=== PATIENT | female | born 1935 | race Caucasian/White ===

== ENCOUNTER 2019-08-08 03:23 | Inpatient (IN) | payer OTHER, MEDICAID, SELFPAY ==
[~2019-08-08] VITALS: Ht 160 cm; Wt 105.7 kg
[2019-08-08] VITALS (16 sets, daily range): BP systolic 67–135
[2019-08-08] MEDS ORDERED: NACL 0.9% 1,000 ML IV ONE (03:26)
[2019-08-08] MEDS ORDERED: KETOROLAC TROMETHAMINE 30 MG VIAL IVP ONE (03:30)
[2019-08-08] MEDS ORDERED: cefTRIAXone 1 GM IVPB PREMIX 50 ML IV ONE (03:30)
[2019-08-08] MEDS ORDERED: methylPREDNISolone SOD SUCC/PF 62.5 MG/ML VIAL IVP ONE (03:30)
[2019-08-08] MEDS ORDERED: ACETAMINOPHEN 500 MG TABLET PO ONE ×2 (03:30→04:00)
--- NOTE | 2019-08-08 03:30 | NUR ---
Placed in room 8 . Placed on compliance monitor, blood pressure machine and pulse oximeter. To gown for exam. Side rails up. Report given to Fuentes BARRERA/Radha BARRERA.
--- NOTE | 2019-08-08 03:31 | NUR ---
ER Dr. Ram at bedside examining patient.
--- NOTE | 2019-08-08 03:31 | NUR ---
Oxygen applied at 4 L per minute per min. O2 sats 97% by pulse oximetry.
--- NOTE | 2019-08-08 03:32 | NUR ---
Patient BIB EMS from [facility] ([facility]). C/O fall x today. Per EMS reported, patient fell and found in the restroom, lower back pain, Temp 102 at the scence. A/O,X4, lower back pain, pain rate 5/10, bilateral lower legs, swelling, redness, pitting edema right lower leg +1, Temp 103 (Oral).
--- NOTE | 2019-08-08 03:43 | NUR ---
RT drawn blood at bedside.
[2019-08-08] MEDS ORDERED: IBUPROFEN 800 MG TABLET PO ONE (04:00)
[2019-08-08] MEDS ORDERED: ALLO300T2 PO (04:08)
[2019-08-08] MEDS ORDERED: MULT-1159 PO (04:08)
[2019-08-08] MEDS ORDERED: [UNRECOGNIZED DRUG - CODE] TP (04:08)
[2019-08-08] MEDS ORDERED: POTA10TA15 PO (04:08)
[2019-08-08] MEDS ORDERED: HYDC.5% TP (04:08)
[2019-08-08] MEDS ORDERED: SILV50CR43 TP (04:08)
[2019-08-08] MEDS ORDERED: CHOL500037 PO (04:08)
[2019-08-08] MEDS ORDERED: ALBU2.5V7 INH (04:08)
[2019-08-08] MEDS ORDERED: RIVA10TA PO (04:08)
[2019-08-08] MEDS ORDERED: FENO160 PO (04:08)
[2019-08-08] MEDS ORDERED: POLY17PO4 PO (04:08)
[2019-08-08] MEDS ORDERED: HYDR-3607 PO (04:08)
[2019-08-08] MEDS ORDERED: ACET-73 PO (04:08)
[2019-08-08] MEDS ORDERED: GABA-529 PO (04:08)
[2019-08-08] MEDS ORDERED: KETO60CR2 TP (04:08)
[2019-08-08] MEDS ORDERED: NALO4SPR NS (04:08)
[2019-08-08] MEDS ORDERED: DOCU250C14 PO (04:08)
[2019-08-08] MEDS ORDERED: PROP15DR45 OP (04:08)
[2019-08-08] MEDS ORDERED: TRIA80OI TP (04:08)
[2019-08-08] MEDS ORDERED: NYST15PO2 TP (04:08)
[2019-08-08] MEDS ORDERED: FURO-149 PO (04:08)
[2019-08-08] MEDS ORDERED: NITSL SL (04:08)
[2019-08-08] MEDS ORDERED: ONDA4TAB5 PO (04:08)
[2019-08-08] MEDS ORDERED: ALEN10TA7 PO (04:08)
--- NOTE | 2019-08-08 04:08 | NUR ---
Medication reconciliation completed with information provided by KARELY BRYANT. Any prior medication reconciliation on file was reviewed and corrected.
[2019-08-08 04:30] LABS: BASOPHILS # (AUTO) 0.1 K/uL (0.0-0.2); BASOPHILS % (AUTO) 0.6 % (0.0-2.0); EOSINOPHILS # (AUTO) 0.1 K/uL (0.0-0.4); EOSINOPHILS % (AUTO) 0.9 % (0.0-4.0); HEMATOCRIT 40.4 % (36-48); HEMOGLOBIN 13.5 g/dL (12.0-16.0); LYMPHOCYTES # (AUTO) 1.1 K/uL (1.0-5.5); LYMPHOCYTES % (AUTO) 12.6 % (20.5-51.5); MEAN CORPUSCULAR HEMOGLOBIN 34 pg (27-31); MEAN CORPUSCULAR HGB CONC 34 % (32-36); MEAN CORPUSCULAR VOLUME 102 fL (79.0-98.0); MONOCYTES # (AUTO) 0.8 K/uL (0.0-1.0); MONOCYTES % (AUTO) 8.5 % (1.7-9.3); NEUTROPHILS % (AUTO) 77.4 % (40.0-70.0); PLATELET COUNT (AUTO) 330 K/uL (130-430); RED BLOOD CELL COUNT(AUTO) 3.96 MIL/uL (4.2-6.2); RED CELL DISTRIBUTION WIDTH 14.1 % (9.0-15.0); WHITE BLOOD COUNT (AUTO) 9.1 K/uL (4.8-10.8)
--- NOTE | 2019-08-08 04:32 | NUR ---
X- ray at bedside.
--- NOTE | 2019-08-08 04:34 | NUR ---
BP 82/42, Dr. Ram notified.
[2019-08-08 04:43] LABS: ANION GAP 7 (5-15); CALCIUM 8.9 mg/dL (8.4-11.0); CHLORIDE 100 mmol/L (98-107); CREATININE 1.19 mg/dL (0.55-1.30); GLUCOSE 113 mg/dL (70-99); POTASSIUM 3.9 mmol/L (3.5-5.1); SODIUM SERUM 137 mmol/L (136-145); UREA NITROGEN, BLOOD 30 mg/dL (8-21)
[2019-08-08 04:45] LABS: INR 1.2 (0.8-1.2)
[2019-08-08 04:48] LABS: ALANINE AMINOTRANSFERASE 26 U/L (12-78); ALBUMIN 2.6 g/dL (3.4-4.8); AMYLASE 45 U/L (0-100); ASPARTATE AMINOTRANSFERASE 23 U/L (10-37); LIPASE 134 U/L (73-393); TOTAL BILIRUBIN 0.4 mg/dL (0.0-1.0)
--- NOTE | 2019-08-08 05:01 | NUR ---
In and out cath, collected urine and sent to lab.
[2019-08-08 05:14] LABS: BILIRUBIN,URINE NEGATIVE (NEGATIVE); CLARITY/URINE CLEAR (CLEAR); COLOR,URINE YELLOW (YELLOW); GLUCOSE,URINE NEGATIVE (NEGATIVE); KETONES,URINE NEGATIVE (NEGATIVE); LEUKOCYTE ESTERASE ,URINE 3+ (NEGATIVE); NITRITE, URINE POSITIVE (NEGATIVE); PROTEIN URINE 1+ (NEGATIVE); UROBILINOGEN,URINE 0.2 (0.2-1.0)
[2019-08-08 05:20] LABS: BLOOD, URINE TRACE (NEGATIVE)
[2019-08-08 05:22] LABS: BACTERIA,URINE MANY /HPF (None Seen); WBC,URINE >100 /HPF (0-3)
--- NOTE | 2019-08-08 05:42 | NUR ---
Patient resting quietly. No acute distress noted. Vital signs within normal range.
--- NOTE | 2019-08-08 06:33 | NUR ---
Called for bed, waiting to call back.
--- NOTE | 2019-08-08 07:04 | NUR ---
Endorsed care to HOLLY Phelps.
--- NOTE | 2019-08-08 08:13 | NUR ---
Patient is resting comfortably in bed, alert and oriented, speaking in full sentences, VSS.
[2019-08-08] MEDS ORDERED: NITROGLYCERIN 0.4 MG TAB.SUBL SL PRN (09:30)
[2019-08-08] MEDS ORDERED: FAMOTIDINE 20 MG TABLET PO ONE (09:30)
[2019-08-08] MEDS ORDERED: POLYETHYLENE GLYCOL 3350, 17 GM/ POWD.PACK PO SCH (09:30)
[2019-08-08] MEDS ORDERED: GABAPENTIN 100 MG CAPSULE PO ONE (09:30)
[2019-08-08] MEDS ORDERED: NS 250 ML IV ONE ×2 (10:15→12:00)
--- NOTE | 2019-08-08 10:17 | NUR ---
Spoke with Dr. Shafer, patient upgraded to ICU for hypotension. Additional orders received.
--- NOTE | 2019-08-08 10:44 | NUR ---
Patient is resting comfortably in bed, denied any respiratory distress.
--- NOTE | 2019-08-08 10:52 | NUR ---
Patient will be admitted to care of Dr. Shafer. Admitted to ICU unit. Will go to room 5. Belongings list completed. Complete and up to date summary report printed. SBAR report to be given at bedside with opportunity for questions.
--- NOTE | 2019-08-08 11:05 | NUR ---
ADMISSION NOTE Received patient from ER via gurney. Patient admitted with diagnosis of . Patient is awake, alert, oriented X 3. Patient oriented to hospital room, call light, toileting, pain management and safety-teach back done. Patient informed that i will be her nurse and that their room number is 5. Personal belongings checked and Belongings List documented. Call light within reach. contact/droplet precaution placed.
--- NOTE | 2019-08-08 11:55 | NUR ---
New consult paged to Dr. Marks. Spoke with exchange.
[2019-08-08] MEDS: NOREPINEPHRINE BITARTRATE 4 MG in D5W 246 ML IV PRN ×2 (12:35→23:47)
--- NOTE | 2019-08-08 12:55 | NUR ---
New consult paged to Dr. Kiser, spoke with exchange Elsy.
[2019-08-08] MEDS ORDERED: ALBUTEROL MDI INHALATION 8 GM INH INH SCH (13:00)
[2019-08-08] MEDS ORDERED: PIPERACILLIN/TAZO 3.375/DEX-IS 50 ML IV ONE (13:00)
--- NOTE | 2019-08-08 13:05 | NUR ---
MD ROUNDS: SEEN BY DR. WILSON EXAMINED AND DISCUSS ABOUT THE POC. INFORMED ALSO PATIENT REFUSED PICC LINE PLACEMENT.
--- NOTE | 2019-08-08 13:15 | NUR ---
FELIPE CATH: # 16 FR Felipe catheter with 10 cc bulb inserted with use of sterile technique. Bulb inflated with 10 cc sterile water. Immediate return of 200 cc urine noted. Bedside drainage bag placed below level of bladder. Urine sample collected and sent to lab . Pt tolerated procedure well.
[2019-08-08] MEDS ORDERED: IVERMECTIN 3 MG TABLET PO ONE (13:30)
--- NOTE | 2019-08-08 13:32 | NUR ---
DR. HUNTER, INFORMED ABOUT THE CONSULT AND UPDATED PATIENT CURRENT CONDITION.TELEPHONE ORDER RECEIVED. ZITHROMAX 500MG IVPB DAILY, ZOSYN 3/375GM IVPB q 8 HRS. IVERMICTIN 12 MG PO X1. NOTED AND CARRIED OUT.
[2019-08-08] MEDS: AZITHROMYCIN 500 MG in NS 250 ML IV SCH (14:53)
--- NOTE | 2019-08-08 15:50 | NUR ---
ECHOCARDIOGRAM DONE AT BEDSIDE.
[2019-08-08] MEDS: NACL 0.9% 1,000 ML IV SCH ×2 (16:51→22:25)
[2019-08-08] MEDS: RIVAROXABAN 10 MG TABLET PO SCH (17:45)
--- NOTE | 2019-08-08 18:10 | NUR ---
PATIENT REFUSED TO EAT DINNER. STATED NOT HUNGRY AT THIS TIME. WILL OFFER AGAIN LATER.
--- NOTE | 2019-08-08 19:15 | NUR ---
change of shift.pt.presents isolation status;droplet;covid 19 pui.pt.presents iv access;levophed drip infusing:rate;6mcq/min; 18ml/hr. via peripheraline;location;lt.hand.pt.presents moreno cath.urine content present.pt.presents the administration o2 therapy via nasal cannulae;@the rate;4l/m,in.02-sat%=98%.call light w/in reach of the pt.
--- NOTE | 2019-08-08 19:23 | NUR ---
ENDORSED CARE TO VASILIY BARRERA. PT AWAKE,STABLE CONDITION. NO S/S OF DISTRESS.
--- NOTE | 2019-08-08 19:30 | NUR ---
b/p assessed presents elevated values.131/54.i have decreased the levophed drip:4mcq/min.to monitor the b/p values.
--- NOTE | 2019-08-08 20:00 | NUR ---
pt.assessed.v/s assessed;b/p values noted.o2-sat%=98%.moreno cath intact;patent urine content present:noted sediments. iv access intact;patent iv fluids/levophed drip infusing.no c/o pain,nausea.general status stable.respiratory status stable.call light placed w/in reach of the pt.
[2019-08-08] MEDS: DOCUSATE SODIUM 250 MG CAPSULE PO SCH (20:45)
[2019-08-08] MEDS: GABAPENTIN 100 MG CAPSULE PO SCH (20:45)
[2019-08-08] MEDS: HYDROcodone/ACETAMIN 5-325 MG TAB (NORCO/ VICODIN) PO SCH (20:46)
--- NOTE | 2019-08-08 21:00 | NUR ---
2100p medications administered.i have feed the pt.the dinner tray.pt.capable t ingest the medications w/out difficulty.
[2019-08-08] MEDS: PIPERACILLIN/TAZO 3.375/DEX-IS 50 ML IV SCH (21:38)
--- NOTE | 2019-08-08 22:00 | NUR ---
pt.assessed.v/s assessed:b/p values present low values;i have increased the levophed drip rate:5mcq/min.no c/o pain,nausea. pt.assessed for cleanliness.pt.repositioned.iv access intact;patent iv fluids infusing.moreno cath intact;patent urine content present. sediments noted. general status stable.respiratory status stable;o2-sat%=98%.call light placed w/in reach of the pt.
[2019-08-09] VITALS (23 sets, daily range): BP systolic 53–133
--- NOTE | 2019-08-09 | NUR ---
pt.assessed.v/s assessed;note b/p presents low values;i have increased the levo phed drip rate;6mcq/min.no c/o pain, nausea. pt.assessed for cleanliness.pt.repositioned.noted:s.bradycardia rhythm.moreno cath intact;patent urine content present. general status stable. respiratory status stable;02-sat%=98%.call light placed w/in reach of the pt.
--- NOTE | 2019-08-09 01:00 | NUR ---
pt.requested assistance w the bedpan.i have assisted the pt.w the bedpan.pt.requested additional blanket,i have provided the blanket and water.
--- NOTE | 2019-08-09 02:00 | NUR ---
pt.assessed.v/s assessed values w/in normal limits:b/p values noted 2/t levophed drip administration.no c/o pain,nausea. no requests posited@this hour.respiratory status noted;o2-sat%=96%.general status stable.pt.assessed for cleanliness. pt.repositioned. call light placed w/in reach of the pt.
--- NOTE | 2019-08-09 04:00 | NUR ---
pt.assessed.v/s assessed;values:b/p noted 2/t levophed drip.w/in normal limits.rate:6mcq/min.respiratory status sat;02-sat% =96%. iv access intact;patent iv fluids;levophed drip infusing.no c/o pain,nausea.general status stable.pt.assessed for cleanliness.pt.repositioned. call light w/in reach of the pt.
[2019-08-09] MEDS: NACL 0.9% 1,000 ML IV SCH ×2 (05:54→09:53)
[2019-08-09] MEDS: PIPERACILLIN/TAZO 3.375/DEX-IS 50 ML IV SCH ×3 (05:54→23:09)
[2019-08-09 05:55] LABS: BASOPHILS # (AUTO) 0.1 K/uL (0.0-0.2); BASOPHILS % (AUTO) 0.5 % (0.0-2.0); EOSINOPHILS # (AUTO) 0.1 K/uL (0.0-0.4); HEMATOCRIT 40.1 % (36-48); HEMOGLOBIN 13.5 g/dL (12.0-16.0); LYMPHOCYTES # (AUTO) 0.2 K/uL (1.0-5.5); LYMPHOCYTES % (AUTO) 1.4 % (20.5-51.5); MEAN CORPUSCULAR HEMOGLOBIN 35 pg (27-31); MEAN CORPUSCULAR HGB CONC 34 % (32-36); MEAN CORPUSCULAR VOLUME 103 fL (79.0-98.0); MONOCYTES # (AUTO) 0.1 K/uL (0.0-1.0); MONOCYTES % (AUTO) 0.8 % (1.7-9.3); NEUTROPHILS # (AUTO) 11.5 K/uL (1.8-7.7); NEUTROPHILS % (AUTO) 96.3 % (40.0-70.0); PLATELET COUNT (AUTO) 384 K/uL (130-430); RED BLOOD CELL COUNT(AUTO) 3.91 MIL/uL (4.2-6.2); RED CELL DISTRIBUTION WIDTH 14.1 % (9.0-15.0); WHITE BLOOD COUNT (AUTO) 11.9 K/uL (4.8-10.8)
[2019-08-09] MEDS: ACETAMINOPHEN 500 MG TABLET PO PRN ×2 (06:05→23:10)
--- NOTE | 2019-08-09 06:30 | NUR ---
pt.assessed.pt.presents temp;elevated.cooling measures initiated.i have administered tylenol;500mg po 1 tab;extra-strength.i have photoed the wounds;lower extremities,rt.buttocks/sacrum.b/p values noted.iv access intact;patent levophed drip/iv fluids infusing. 6mcq/min.i have administered zosyn;abx;ivpb.0600a.dose.to monitor the b/p,temp values.i
[2019-08-09 07:11] LABS: ALBUMIN 2.1 g/dL (3.4-4.8); ANION GAP 3 (5-15); CALCIUM 8.2 mg/dL (8.4-11.0); CHLORIDE 105 mmol/L (98-107); CREATININE 1.17 mg/dL (0.55-1.30); GLUCOSE 73 mg/dL (70-99); POTASSIUM 3.8 mmol/L (3.5-5.1); SODIUM SERUM 137 mmol/L (136-145); UREA NITROGEN, BLOOD 33 mg/dL (8-21)
--- NOTE | 2019-08-09 07:30 | NUR ---
Opening Notes Patient sleeping in bed at this time but is arousable, able to communicate and answer questions. Patient on desk monitor with 4L oxygen via nasal cannula with no signs of distress noted. Patent with a peripheral IV infusing levophed at 8 mcg/min. Patient also receiving NS @ 125 ml/hr at this time. Patient with moreno catheter draining yellow urine. Safety and isolation precautions enforced.
[2019-08-09 08:28] LABS: ALANINE AMINOTRANSFERASE 26 U/L (12-78); ASPARTATE AMINOTRANSFERASE 28 U/L (10-37); THYROID STIMULATING HORMONE 1.58 uIu/mL (0.34-4.82); TOTAL BILIRUBIN 0.3 mg/dL (0.0-1.0)
--- NOTE | 2019-08-09 08:57 | NUR ---
Nutrition Update Devendra Scale 13 noted. Pt admitted for PNA, CHF, PUI for COVID-19 Diet: 2gmNa BMI: 38.8 kg/m2 RD to follow per nutrition care standards.
[2019-08-09] MEDS: GABAPENTIN 100 MG CAPSULE PO SCH ×2 (09:51→23:10)
[2019-08-09] MEDS: HYDROcodone/ACETAMIN 5-325 MG TAB (NORCO/ VICODIN) PO SCH ×2 (09:51→23:10)
[2019-08-09] MEDS: DOCUSATE SODIUM 250 MG CAPSULE PO SCH ×2 (09:52→21:00)
[2019-08-09] MEDS: AZITHROMYCIN 500 MG in NS 250 ML IV SCH (09:52)
[2019-08-09] MEDS: FAMOTIDINE 20 MG TABLET PO SCH (09:52)
--- NOTE | 2019-08-09 10:00 | NUR ---
PICC line refusal Reinforced teaching regarding PICC line placement. Patient verbalized understanding and stated, "I had two PICC lines before and did not like the experience."
--- NOTE | 2019-08-09 10:10 | NUR ---
IV Insertion refusal Educated patient regarding a second peripheral IV insertion which patient refused. Patient verbalized teaching.
[2019-08-09] MEDS: NOREPINEPHRINE BITARTRATE 4 MG in D5W 246 ML IV PRN (10:50)
--- NOTE | 2019-08-09 12:00 | NUR ---
RN Rounds Patient resting at this time, no signs of distress noted. Safety precautions enforced.
--- NOTE | 2019-08-09 12:05 | NUR ---
Discharge Planning Conducted Discharge Plan Assessment Patient is in ICU and PUI Covid. Could not meet patient at bedside. Phoned [facility] [phone], where patient resides, and spoke with patient's nurse there. She had incorrect information on patient's recent discharge from SNF, but did say that patient was supposed to get wound care and PT from [facility] (she thinks). They plan for patient to return to [facility] upon discharge if she is strong enough. Phoned patient's sister, Nicole Fuller cell [phone]. She stated that patient was recently at [facility] until June 21, when she returned to her home at [facility]. Patient worked hard to get back to [facility] and sister knows patient would prefer to return there. Nicole would like patient to have PT services upon discharge. If patient requires SNF, Nicole would prefer patient go to a SNF closer to [place], but hopes patient will be able to assist in that decision. Will notify CM and DC Coordinator of above. Will remain available. Addendum: 08/09/19 at 1210 by Leah Patel [facility] Patient's baseline is wheelchair with self transfer to [facility] for toileting and other short trips.
--- NOTE | 2019-08-09 15:35 | NUR ---
Dietitian Recommendations *Continue 2gm Na diet as tolerated *Ensure Clear BID. Each serving provides 240kcal and 8gPro. *Encourage PO intake Please see Nutrition Assessment for further details. LT, RD
--- NOTE | 2019-08-09 16:00 | NUR ---
RN Rounds Irrigated moreno catheter using sterile water. Patient tolerated well. No signs of distress noted. Patient resting at this time with eyes closed.
--- NOTE | 2019-08-09 16:00 | NUR ---
WOUND EVALUATION: Wound Consult received from Dr. Shafer. Thank you Dr. Shafer for the consult. Patient received in a [facility] Bed with an IsoFlex HARRY low air-loss mattress, awake, sleepy, oriented. Patient is unable to turn in bed independently. Devendra Score is a 13. Past Medical History: Atrial Fibrillation, Hypertension, Congestive Heart Failure, COPD. Recent Labs: WBC 11.9, RBC 3.91, hemoglobin 13.5, hematocrit 40.1, BUN 33, creatinine 1.17, glucose 73, calcium 8.2, alkaline phosphatase 44, BNP 660, serum total protein 5.8, albumin 2.1, PTT 42.9, d-dimer 517. Microbiology: MRSA screen results negative. Blood culture results x2 in progress. Urine culture results in progress. Intrinsic factors that delay wound healing: Congestive Heart Failure, COPD, Hypoalbuminemia. Extrinsic factors that delay wound healing: Decreased mobility. Generalized body erythema noted. Wound Assessment: 1. Right Buttock: Stage II pressure ulcer, present on admission. Wound bed has 90% pink tissue, 10% red tissue. No odor, no drainage. Periwound intact. Wound measures 1.5 cm x 1.1 cm. Recommend: Cleanse wound with normal saline. Apply moisture barrier cream to periwound. Apply Venelex ointment to the wound bed. Cover with foam dressing. Perform wound care daily, and as needed for dressing soiling or dislodgment. 2. Left lower extremity: Possible cellulitis, with erythema, calor, and nonpitting edema. No odor, no drainage, no weeping, no wounds. 3. Right lower extremity: Possible cellulitis, with erythema, calor, and nonpitting edema. No odor, no drainage, no weeping, no wounds. Recommend: No dressings needed. Continue to monitor extremities every shift. Also recommend: Reposition patient side to side only every 2 hours with one pillow deep under buttock and one pillow deep under trunk (you should be able to slide hand freely underneath buttock area with wound), and off-load pressure areas with pillows for pressure re-distribution. Offload, elevate and float bilateral heels with pillows. Perform skin care and monitor skin integrity Q shift. Use moisture barrier cream on buttocks and other moisture susceptible areas QID and as needed for soiling. Initiate low air-loss therapy.
[2019-08-09] MEDS: RIVAROXABAN 10 MG TABLET PO SCH (18:15)
--- NOTE | 2019-08-09 19:40 | NUR ---
Closing Notes Patient endorsed to third shift lieutenant RN using SBAR format. No signs of distress noted.
--- NOTE | 2019-08-09 20:00 | NUR ---
ASSESSMENT Pt resting quietly. Fever present 102.3 temporal. IVF infusing well. Cooling measures started. Mcfarland cath in use.
[2019-08-10] VITALS (23 sets, daily range): BP systolic 61–128
[2019-08-10] MEDS: NACL 0.9% 1,000 ML IV SCH ×3 (05:15→15:30)
--- NOTE | 2019-08-10 05:15 | NUR ---
FEVER Dr Cuevas informed regarding Pt having a fever of 102.3 temporal during the night. No orders received.
[2019-08-10 05:49] LABS: BASOPHILS # (AUTO) 0.1 K/uL (0.0-0.2); BASOPHILS % (AUTO) 0.5 % (0.0-2.0); EOSINOPHILS # (AUTO) 0.4 K/uL (0.0-0.4); EOSINOPHILS % (AUTO) 1.9 % (0.0-4.0); HEMATOCRIT 38.7 % (36-48); HEMOGLOBIN 12.8 g/dL (12.0-16.0); LYMPHOCYTES # (AUTO) 0.3 K/uL (1.0-5.5); LYMPHOCYTES % (AUTO) 1.5 % (20.5-51.5); MEAN CORPUSCULAR HEMOGLOBIN 34 pg (27-31); MEAN CORPUSCULAR HGB CONC 33 % (32-36); MEAN CORPUSCULAR VOLUME 103 fL (79.0-98.0); MONOCYTES # (AUTO) 0.3 K/uL (0.0-1.0); MONOCYTES % (AUTO) 1.4 % (1.7-9.3); NEUTROPHILS # (AUTO) 19.7 K/uL (1.8-7.7); NEUTROPHILS % (AUTO) 94.7 % (40.0-70.0); PLATELET COUNT (AUTO) 377 K/uL (130-430); RED BLOOD CELL COUNT(AUTO) 3.76 MIL/uL (4.2-6.2); RED CELL DISTRIBUTION WIDTH 14.4 % (9.0-15.0); WHITE BLOOD COUNT (AUTO) 20.7 K/uL (4.8-10.8)
[2019-08-10] MEDS: PIPERACILLIN/TAZO 3.375/DEX-IS 50 ML IV SCH ×3 (05:57→22:06)
[2019-08-10] MEDS: NOREPINEPHRINE BITARTRATE 4 MG in D5W 246 ML IV PRN ×2 (06:08→20:31)
[2019-08-10 06:20] LABS: ALANINE AMINOTRANSFERASE 26 U/L (12-78); ALBUMIN 1.5 g/dL (3.4-4.8); ANION GAP 7 (5-15); ASPARTATE AMINOTRANSFERASE 25 U/L (10-37); CALCIUM 7.3 mg/dL (8.4-11.0); CHLORIDE 104 mmol/L (98-107); CREATININE 1.84 mg/dL (0.55-1.30); GLUCOSE 117 mg/dL (70-99); POTASSIUM 3.8 mmol/L (3.5-5.1); SODIUM SERUM 137 mmol/L (136-145); THYROID STIMULATING HORMONE 1.79 uIu/mL (0.36-3.74); TOTAL BILIRUBIN 0.3 mg/dL (0.0-1.0); UREA NITROGEN, BLOOD 39 mg/dL (8-21)
[2019-08-10] MEDS: GABAPENTIN 100 MG CAPSULE PO SCH ×2 (09:00→22:06)
[2019-08-10] MEDS: DOCUSATE SODIUM 250 MG CAPSULE PO SCH ×2 (09:00→22:06)
[2019-08-10] MEDS: FAMOTIDINE 20 MG TABLET PO SCH (09:00)
[2019-08-10] MEDS ORDERED: NACL 0.9% 1,000 ML IV ONE (09:00)
[2019-08-10] MEDS: HYDROcodone/ACETAMIN 5-325 MG TAB (NORCO/ VICODIN) PO SCH ×2 (09:00→22:08)
--- NOTE | 2019-08-10 09:40 | NUR ---
CONSULT NEPHRO. CONSULTING MD: DR. MATHIS SPOKE TO: SHABNAM DIALED: [phone] ORDERED BY: DR. WILSON
--- NOTE | 2019-08-10 10:00 | NUR ---
Pt refused breakfast, medications and PICC line.
--- NOTE | 2019-08-10 11:00 | NUR ---
COVID TEST Pt refused repeat covid test. States leave me alone. Dont touch me.
[2019-08-10] MEDS: AZITHROMYCIN 500 MG in NS 250 ML IV SCH (11:55)
--- NOTE | 2019-08-10 13:30 | NUR ---
PICC Held the phone up for pts sister Moses to talk to the pt about a PICC line. The pt declines at this time and I explained to both the patient and moses the necessity due to the levophed and abx. I explained the patient that she could without the levophed if her IV infiltrates. She did not say anything but continues to refuse the PICC. She would allow a physician to insert the PICC but not a nurse. I informed both that the doctors do central lines not PICC lines and that a PICC is more versatile upon discharge for for custodial abx. Pt refuses the PICC.
--- NOTE | 2019-08-10 16:07 | NUR ---
Social Service Note: CEMENT MASON APPRENTICE received order to determine if pt can make her own decisions. CEMENT MASON APPRENTICE reviewed pt's chart; pt has a DNR. CEMENT MASON APPRENTICE spoke with pt's nurse regarding order. Pt's nurse states that pt has only one IV site and need a PICC; pt is stating that she does not want a PICC. CEMENT MASON APPRENTICE spoke with pt's nurse that if pt cannot make decisions her sister should be contacted. Pt's nurse states that she has spoken to pt's sister who wants to honor pt's wishes. If physician feels pt should be evaluated to determine her competency a psychiatric consultation should be ordered. CEMENT MASON APPRENTICE will remain available for support and will follow up as needed.
--- NOTE | 2019-08-10 16:17 | NUR ---
Social Service Consult/Estela Palmer rounded regarding the social service consult ordered. She indicated as long as there are advanced directives that is what we should follow. She is unable to speak to the patient at this time.
--- NOTE | 2019-08-10 16:38 | NUR ---
Cell Phone brought to hospital Someone brought the pts cell phone to the hospital. I told them to leave it at home, but they insisted. I put the cell phone in the room in the pts belongings bag. I dod not log it on the belongings list. I did not have time.
[2019-08-10] MEDS: BALSAM PERU/CASTOR OIL 60 GM OINT...G. TP SCH (17:31)
[2019-08-10] MEDS: RIVAROXABAN 10 MG TABLET PO SCH (18:00)
--- NOTE | 2019-08-10 19:15 | NUR ---
OPENING NOTE SBAR RECEIVED FROM TAMAR BARRERA. CARE ASSUMED. PT LAYING IN BED. ANO X 3. PT ON 4L NASAL CANULA. O2 SATURATION 99%. PT SINUS RHYTHM ON MONITOR RATE 88. PT HAS 22G IV TO LEFT HAND RUNNING LEVOPHED @ 6MCG/MIN AND NORMAL SALINE @ 100ML/HR. RADIAL AND PEDAL PULSES NORMAL. 2+ PITTING EDEMA TO UPPER AND LOWER EXTREMITIES. ABDOMEN SOFT NON DISTENDED. FELIPE CATHETER IN PLACE FLOWING TO GRAVITY. URINE YELLOW AND CLEAR. BILATERAL UPPER AND LOWER EXTREMITIES ERYTHEMATOUS AND SWOLLEN. SACRAL WOUND PRESENT. DRESSING CLEAN DRY AND INTACT. BED LOCKED IN LOWEST POSITION. SAFETY PRECAUTIONS IN PLACE. CALL LIGHT WITHIN REACH. WILL CONTINUE TO MONITOR.
--- NOTE | 2019-08-10 19:30 | NUR ---
Report given to oncoming shift to assume care.
[2019-08-10] MEDS ORDERED: NOREPINEPHRINE 4 MG/4 ML VIAL IV ONE (20:29)
[2019-08-11] VITALS (25 sets, daily range): BP systolic 78–137
[2019-08-11] MEDS: NACL 0.9% 1,000 ML IV SCH ×3 (01:00→22:45)
[2019-08-11] MEDS: PIPERACILLIN/TAZO 3.375/DEX-IS 50 ML IV SCH ×3 (06:48→21:00)
--- NOTE | 2019-08-11 07:30 | NUR ---
Opening Notes Pt received from night RN using SBAR. Pt resting in bed with eyes closed. No complaints of pain or distress at this time.
--- NOTE | 2019-08-11 07:30 | NUR ---
Opening Note Pt resting in bed with eyes closed. Pt is easily awaken to verbal stimuli.
--- NOTE | 2019-08-11 07:54 | NUR ---
CLOSING NOTE PT LAYING IN BED. NO SIGNS AND SYMPTOMS OF DISTRESS NOTED. SBAR REPORT GIVEN TO RODERICK BARRERA. CARE ENDORSED.
[2019-08-11] MEDS: GABAPENTIN 100 MG CAPSULE PO SCH ×3 (07:57→20:59)
[2019-08-11] MEDS: DOCUSATE SODIUM 250 MG CAPSULE PO SCH ×3 (07:57→20:59)
[2019-08-11] MEDS: AZITHROMYCIN 500 MG in NS 250 ML IV SCH (07:57)
[2019-08-11] MEDS: FAMOTIDINE 20 MG TABLET PO SCH ×2 (07:58→09:00)
[2019-08-11] MEDS: HYDROcodone/ACETAMIN 5-325 MG TAB (NORCO/ VICODIN) PO SCH ×3 (07:58→21:00)
[2019-08-11] MEDS ORDERED: NACL 0.9% 1,000 ML IV ONE (08:30)
[2019-08-11] MEDS: BALSAM PERU/CASTOR OIL 60 GM OINT...G. TP SCH (09:00)
--- NOTE | 2019-08-11 09:00 | NUR ---
Refusing Pt refusing morning breakfast and morning medication. Will continue to offer food and medication
[2019-08-11] MEDS: NOREPINEPHRINE BITARTRATE 4 MG in D5W 246 ML IV PRN ×2 (09:03→19:17)
[2019-08-11 11:10] LABS: HEMATOCRIT 37.7 % (36-48); HEMOGLOBIN 12.4 g/dL (12.0-16.0); MEAN CORPUSCULAR HEMOGLOBIN 34 pg (27-31); MEAN CORPUSCULAR HGB CONC 33 % (32-36); MEAN CORPUSCULAR VOLUME 104 fL (79.0-98.0); PLATELET COUNT (AUTO) 341 K/uL (130-430); RED BLOOD CELL COUNT(AUTO) 3.62 MIL/uL (4.2-6.2); RED CELL DISTRIBUTION WIDTH 14.8 % (9.0-15.0); WHITE BLOOD COUNT (AUTO) 21.8 K/uL (4.8-10.8)
[2019-08-11] MEDS: ALBUMIN HUMAN 25% 50 ML IV SCH ×3 (11:22→19:10)
[2019-08-11 11:32] LABS: ANION GAP 12 (5-15); CHLORIDE 107 mmol/L (98-107); CREATININE 1.59 mg/dL (0.55-1.30); GLUCOSE 116 mg/dL (70-99); POTASSIUM 3.5 mmol/L (3.5-5.1); SODIUM SERUM 138 mmol/L (136-145); UREA NITROGEN, BLOOD 45 mg/dL (8-21)
[2019-08-11 11:47] LABS: ALANINE AMINOTRANSFERASE 22 U/L (12-78); ALBUMIN 1.3 g/dL (3.4-4.8); ASPARTATE AMINOTRANSFERASE 5 U/L (10-37); TOTAL BILIRUBIN 0.3 mg/dL (0.0-1.0)
[2019-08-11 11:50] LABS: CALCIUM 6.8 mg/dL (8.4-11.0)
--- NOTE | 2019-08-11 13:15 | NUR ---
Bowel Movement Pt informed that she had bowel movement and must be cleaned, pt stated "leave me alone i dont want to be cleaned". Will continue to offer to clean pt
[2019-08-11 13:50] LABS: BAND % (MANUAL) 32 % (0-6); BASOPHILS % (MANUAL) 0 % (0-2); EOSINOPHILS % (MANUAL) 3 % (0-7); LYMPHOCYTES % (MANUAL) 2 % (20-46); METAMYELOCYTES % 2 % (0-0); MONOCYTES % (MANUAL) 1 % (0-11)
--- NOTE | 2019-08-11 14:07 | NUR ---
Nutrition F/U Admitting Diagnosis PNA, CHF, PUI for COVID-19 Reviewed Pertinent Medical/Surgical Hx Medical Record Medical History Comment: PMHx includes A-fib, HTN, CHF, COPD per physician notes. Pt was found with septic shock, aspiration PNA, complicated UTI, metabolic encephalopathy, protein malnutrition per physician notes. COVID-19 PCR 08/08 negative. Per MD note, pt is DNR status. Subjective Information Pt remains as high risk d/t protein malnutrition and sepsis. RD reviewed nursing notes, no pressure injuries reported. Nutrition education not appropriate. EMR indicates that pt eating remains poor. Alternate route of nutrition may be indicated. Current Diet Order/Nutrition Support 2gm Na x 3 day Pertinent Medications Pepcid, Neurontin, Colace, Norepinephrine, Miralax Pertinent Labs Reviewed Height (Feet) 5 feet Height (Inches) 3.00 inches Weight (Pounds) 218 pounds Weight (Calculated Kilograms) 98.228392 kilograms Patient Weight 98.883 kg Body Mass Index 38.61 kg/m2 %IBW 190 [place]/Adjusted Body Weight IBW: 115lbs, 52kg, AdjBW: 141lbs/64kg Weight Status Morbidly Obese Gastrointestinal Symptoms None Usual Diet At Home N/A Skin Integrity Comment: Devendra Score: 13 Skin: IAD lower sacrum and right buttocks, erythema to the lower right and left extremities per RN notes. +2 pitting edema to the bilateral leg, +1 generalized pitting edema per RN notes. Current % PO Poor (0-50%) Estimated Energy Expenditure (kcals/day) 1600-1920kcal/day (25-30kcal/kg based on AdjBW for obesity, sepsis) Estimated Protein Required (g/day) 96-128g/day (1.5-2g/kg based on AdjBW for obesity, sepsis) Estimated Fluid Required (l/day) Fluid needs deferred to MD d/t hx of CHF Problem/Etiology/Signs/Symptoms Increased nutrient needs related to increased metabolic demands as evidenced by critical illness, sepsis Expected Outcomes/Goals Monitor appetite and PO intakes w/ goal of pt meeting at least 50% of estimated nutritional needs, labs trending WNL, normal GI function, and skin integrity/wt maintenance Dietitian Recommendations *Continue 2gm Na diet as tolerated *Ensure Clear BID. Each serving provides 240kcal and 8gPro. *Encourage PO intake Follow Up High Risk: F/U in 2-3days
--- NOTE | 2019-08-11 14:18 | NUR ---
Dietitian Recommendations *Continue 2gm Na diet as tolerated *Ensure Clear BID. Each serving provides 240kcal and 8gPro. *Encourage PO intake Please see Nutrition Follow Up for details. SS, RD
--- NOTE | 2019-08-11 14:30 | NUR ---
Family Update Pt's sister Nicole called further discussed what Dr. Shafer had discussed with Nicole. All questions answered at this time.
[2019-08-11] MEDS: ALBUTEROL SULFATE 0.083% 2.5 MG/3 ML VIAL.NEB INH SCH ×2 (15:00→19:00)
--- NOTE | 2019-08-11 15:40 | NUR ---
Page out to Dr. Shafer, spoke with exchange.
--- NOTE | 2019-08-11 16:00 | NUR ---
Refusing Pt is refusing second Covid test
[2019-08-11] MEDS ORDERED: CALCIUM GLUCONATE 1 GM in NS 100 ML IV ONE (16:30)
[2019-08-11] MEDS ORDERED: LORazepam 2 MG/ML VIAL IVP ONE (17:00)
--- NOTE | 2019-08-11 17:30 | NUR ---
Bowel Movement Pt allowed us to clean and change her. Wound care performed.
[2019-08-11] MEDS: RIVAROXABAN 10 MG TABLET PO SCH (18:00)
--- NOTE | 2019-08-11 19:15 | NUR ---
OPENING NOTE SBAR RECEIVED FROM RODERICK BARRERA. CARE ASSUMED. PT LAYING IN BED. ANO X 1. PT COVID PUI. ISOLATION PRECAUTIONS IMPLEMENTED. PT ON 4L NASAL CANULA. O2 SATURATION 99%. PT SINUS RHYTHM ON MONITOR RATE 76. PT HAS 22G IV TO LEFT HAND RUNNING LEVOPHED @ 10 MCG/MIN AND NORMAL SALINE @ 100ML/HR. RADIAL AND PEDAL PULSES NORMAL. 2+ PITTING EDEMA TO UPPER AND LOWER EXTREMITIES. ABDOMEN SOFT NON DISTENDED. FELIPE CATHETER IN PLACE FLOWING TO GRAVITY. URINE YELLOW AND CLEAR. BILATERAL UPPER AND LOWER EXTREMITIES ERYTHEMATOUS AND SWOLLEN. SACRAL WOUND PRESENT. DRESSING CLEAN DRY AND INTACT. BED LOCKED IN LOWEST POSITION. SAFETY PRECAUTIONS IN PLACE. CALL LIGHT WITHIN REACH. WILL CONTINUE TO MONITOR.
--- NOTE | 2019-08-11 19:20 | NUR ---
Closing Notes Pt endorsed to night RN using SBAR. Isolation precautions observed during shift.
[2019-08-12] VITALS (24 sets, daily range): BP systolic 68–148
[2019-08-12] MEDS: NACL 0.9% 1,000 ML IV SCH ×3 (06:23→22:13)
[2019-08-12] MEDS: PIPERACILLIN/TAZO 3.375/DEX-IS 50 ML IV SCH ×3 (06:23→22:12)
[2019-08-12] MEDS: ALBUTEROL SULFATE 0.083% 2.5 MG/3 ML VIAL.NEB INH SCH ×4 (07:00→19:00)
--- NOTE | 2019-08-12 07:29 | NUR ---
CLOSING NOTE PT LAYING IN BED. NO SIGNS AND SYMPTOMS OF DISTRESS NOTED. ISOLATION PRECAUTIONS OBSERVED THROUGHOUT SHIFT. SBAR REPORT GIVEN TO RODERICK BARRERA. CARE ENDORSED.
--- NOTE | 2019-08-12 07:35 | NUR ---
Opening Notes Pt received from night RN using SBAR. Pt found resting in bed with eyes closed. Pt is easily awaken to verbal stimuli. Pt is currently on 4L NC.
[2019-08-12] MEDS: FAMOTIDINE 20 MG TABLET PO SCH (09:00)
[2019-08-12] MEDS: GABAPENTIN 100 MG CAPSULE PO SCH ×2 (09:00→22:14)
[2019-08-12] MEDS: DOCUSATE SODIUM 250 MG CAPSULE PO SCH ×2 (09:00→22:13)
[2019-08-12] MEDS: HYDROcodone/ACETAMIN 5-325 MG TAB (NORCO/ VICODIN) PO SCH ×2 (09:00→22:12)
[2019-08-12] MEDS: BALSAM PERU/CASTOR OIL 60 GM OINT...G. TP SCH (09:00)
[2019-08-12 09:04] LABS: BASOPHILS # (AUTO) 0.1 K/uL (0.0-0.2); BASOPHILS % (AUTO) 0.4 % (0.0-2.0); EOSINOPHILS # (AUTO) 0.6 K/uL (0.0-0.4); EOSINOPHILS % (AUTO) 3.4 % (0.0-4.0); HEMATOCRIT 35.3 % (36-48); HEMOGLOBIN 11.6 g/dL (12.0-16.0); LYMPHOCYTES # (AUTO) 0.3 K/uL (1.0-5.5); MEAN CORPUSCULAR HEMOGLOBIN 34 pg (27-31); MEAN CORPUSCULAR HGB CONC 33 % (32-36); MEAN CORPUSCULAR VOLUME 103 fL (79.0-98.0); MONOCYTES # (AUTO) 0.4 K/uL (0.0-1.0); MONOCYTES % (AUTO) 2.5 % (1.7-9.3); NEUTROPHILS # (AUTO) 15.4 K/uL (1.8-7.7); NEUTROPHILS % (AUTO) 91.7 % (40.0-70.0); PLATELET COUNT (AUTO) 306 K/uL (130-430); RED BLOOD CELL COUNT(AUTO) 3.42 MIL/uL (4.2-6.2); RED CELL DISTRIBUTION WIDTH 14.5 % (9.0-15.0); WHITE BLOOD COUNT (AUTO) 16.8 K/uL (4.8-10.8)
[2019-08-12 09:24] LABS: ALANINE AMINOTRANSFERASE 17 U/L (12-78); ALBUMIN 1.7 g/dL (3.4-4.8); ANION GAP 8 (5-15); ASPARTATE AMINOTRANSFERASE 12 U/L (10-37); CHLORIDE 106 mmol/L (98-107); CREATININE 1.38 mg/dL (0.55-1.30); GLUCOSE 191 mg/dL (70-99); SODIUM SERUM 136 mmol/L (136-145); TOTAL BILIRUBIN 0.4 mg/dL (0.0-1.0); UREA NITROGEN, BLOOD 40 mg/dL (8-21)
[2019-08-12 09:27] LABS: CALCIUM 6.9 mg/dL (8.4-11.0)
[2019-08-12] MEDS: NOREPINEPHRINE BITARTRATE 4 MG in D5W 246 ML IV PRN (09:39)
[2019-08-12] MEDS: AZITHROMYCIN 500 MG in NS 250 ML IV SCH (09:39)
[2019-08-12] MEDS ORDERED: NACL 0.9% 1,000 ML IV ONE (10:45)
[2019-08-12] MEDS: ALBUMIN HUMAN 25% 50 ML IV SCH ×3 (11:17→18:23)
--- NOTE | 2019-08-12 12:15 | NUR ---
Bowel Movement Pt had a very large bowel movement. Provided total linen change to pt.
[2019-08-12] MEDS ORDERED: KCL 40 mEq in 100 mL (PREMIX) 100 ML IV ONE (14:15)
--- NOTE | 2019-08-12 14:30 | NUR ---
Bowel Movement Pt had large bowel movement, and was found pulling off all connections from in room monitor. Pt cleaned cleaned. Pt became combative and attempted to hit both nurses while cursing. Nurses provided reassurance to pt to provide an environment that is calm with minimal stimuli. Pt is refusing nasal cannula despite being educated about its consequences and current saturation of 89% -90% percent on room air.
[2019-08-12] MEDS: NITROGLYCERIN 1 INCH (GM) OINT. TP SCH ×2 (14:40→22:14)
--- NOTE | 2019-08-12 16:31 | NUR ---
ATTENDING MD DR WILSON WAS CALLED, RE: ORDER FOR ATIVAN. SPOKE TO GUME.
--- NOTE | 2019-08-12 16:50 | NUR ---
MD Dr. Shafer notified of pt being combative verbally and physically. New orders received.
[2019-08-12] MEDS: RIVAROXABAN 10 MG TABLET PO SCH (18:00)
--- NOTE | 2019-08-12 18:50 | NUR ---
Resting Pt resting in bed, no signs of acute distress observed. Isolation precautions observed during shift.
--- NOTE | 2019-08-12 19:43 | NUR ---
Closing Notes Pt endorsed to night RN using SBAR. Isolation precautions observed during shift
--- NOTE | 2019-08-12 21:00 | NUR ---
TURNING & Repositioning OFF LOADING with pillows on TWO HOUR SCHEDULE encouraged , PATIENT Refuse at times .
--- NOTE | 2019-08-12 22:15 | NUR ---
Patient Remains on ISOLATION PUI procedures EXPLAINED , patient is AGITATED .
--- NOTE | 2019-08-12 23:02 | NUR ---
Nitro paste applied to left HAND areas , discoloration Redness EDEMA noted tolerated .
--- NOTE | 2019-08-12 23:10 | NUR ---
FELIPE CATHETER FOR URINE Patent free flow of YELLOW kendra urine noted to BSDB , SIPS of water encouraged .
--- NOTE | 2019-08-12 23:48 | NUR ---
NORCO 5 / 325 MG PO administer for GENERAL PAIN Routine & effective .
[2019-08-13] VITALS (20 sets, daily range): BP systolic 94–139
[2019-08-13] MEDS: NITROGLYCERIN 1 INCH (GM) OINT. TP SCH ×4 (02:17→20:19)
[2019-08-13] MEDS: LORazepam 2 MG/ML VIAL IVP PRN ×3 (02:18→15:35)
--- NOTE | 2019-08-13 04:13 | NUR ---
Large STOOL NOTED BED BATH & CHG implemented , also position change tolerated .
--- NOTE | 2019-08-13 04:15 | NUR ---
PICC LINE dressing change done SUZE BIO patch in place , patient tolerated .
[2019-08-13] MEDS: NACL 0.9% 1,000 ML IV SCH (06:29)
[2019-08-13] MEDS: PIPERACILLIN/TAZO 3.375/DEX-IS 50 ML IV SCH (06:29)
--- NOTE | 2019-08-13 06:30 | NUR ---
LEVOPHED d/c this hour monitor / .
[2019-08-13 06:47] LABS: BASOPHILS # (AUTO) 0.1 K/uL (0.0-0.2); BASOPHILS % (AUTO) 0.4 % (0.0-2.0); EOSINOPHILS # (AUTO) 0.7 K/uL (0.0-0.4); HEMATOCRIT 35.9 % (36-48); HEMOGLOBIN 11.8 g/dL (12.0-16.0); LYMPHOCYTES # (AUTO) 0.6 K/uL (1.0-5.5); LYMPHOCYTES % (AUTO) 4.5 % (20.5-51.5); MEAN CORPUSCULAR HEMOGLOBIN 34 pg (27-31); MEAN CORPUSCULAR HGB CONC 33 % (32-36); MEAN CORPUSCULAR VOLUME 103 fL (79.0-98.0); MONOCYTES # (AUTO) 0.4 K/uL (0.0-1.0); MONOCYTES % (AUTO) 2.9 % (1.7-9.3); NEUTROPHILS # (AUTO) 12.4 K/uL (1.8-7.7); NEUTROPHILS % (AUTO) 87.2 % (40.0-70.0); PLATELET COUNT (AUTO) 286 K/uL (130-430); RED CELL DISTRIBUTION WIDTH 14.6 % (9.0-15.0); WHITE BLOOD COUNT (AUTO) 14.3 K/uL (4.8-10.8)
[2019-08-13] MEDS: ALBUTEROL SULFATE 0.083% 2.5 MG/3 ML VIAL.NEB INH SCH ×5 (07:00→19:00)
[2019-08-13 07:17] LABS: ALANINE AMINOTRANSFERASE 16 U/L (12-78); ALBUMIN 1.8 g/dL (3.4-4.8); ANION GAP 11 (5-15); ASPARTATE AMINOTRANSFERASE 13 U/L (10-37); CALCIUM 7.1 mg/dL (8.4-11.0); CHLORIDE 111 mmol/L (98-107); CREATININE 1.13 mg/dL (0.55-1.30); GLUCOSE 79 mg/dL (70-99); POTASSIUM 3.7 mmol/L (3.5-5.1); SODIUM SERUM 141 mmol/L (136-145); TOTAL BILIRUBIN 0.4 mg/dL (0.0-1.0); UREA NITROGEN, BLOOD 34 mg/dL (8-21)
--- NOTE | 2019-08-13 07:30 | NUR ---
Opening Note Pt received from night RN using SBAR. Pt resting in bed with eyes closed, bed in lowest position. Mcfarland draining yellow urine to gravity. Right PICC infusing NS @ 125 cc/hr. Call light within reach.
[2019-08-13] MEDS: AZITHROMYCIN 500 MG in NS 250 ML IV SCH (08:14)
--- NOTE | 2019-08-13 08:44 | NUR ---
Combative Pt becoming very combative. Pt has taken off leads for in room monitor, partially taken off gown and is trying to pull at PICC line. Pt has been medicated with Ativan. Will continue to monitor.
[2019-08-13] MEDS: GABAPENTIN 100 MG CAPSULE PO SCH ×2 (09:00→20:20)
[2019-08-13] MEDS: HYDROcodone/ACETAMIN 5-325 MG TAB (NORCO/ VICODIN) PO SCH ×2 (09:00→20:20)
[2019-08-13] MEDS: DOCUSATE SODIUM 250 MG CAPSULE PO SCH ×2 (09:00→20:20)
[2019-08-13] MEDS: BALSAM PERU/CASTOR OIL 60 GM OINT...G. TP SCH (09:00)
[2019-08-13] MEDS: FAMOTIDINE 20 MG TABLET PO SCH (09:00)
--- NOTE | 2019-08-13 09:05 | NUR ---
Monitoring effects of Medication Decreased in room stimuli, medication Ativan and provided comfort for pt who is now resting in bed with eyes closed. No complaints of pain or distress noted.
--- NOTE | 2019-08-13 10:49 | NUR ---
MD Dr. Frias informed of pts red appearance. Change of antibiotic medication.
[2019-08-13] MEDS: ERTAPENEM SODIUM 1 GM in NS 50 ML IV SCH (12:29)
--- NOTE | 2019-08-13 13:40 | NUR ---
Bowel Movement Pt had large bowel movement, pt cleaned and provided wound care.
--- NOTE | 2019-08-13 16:35 | NUR ---
Family Pts sister Nicole called for update, jose alfredo questions answered at this time.
[2019-08-13] MEDS: RIVAROXABAN 10 MG TABLET PO SCH (18:00)
--- NOTE | 2019-08-13 18:45 | NUR ---
Transferred Pt transferred to TELE room 120, report given to Loretta. All belongings taken for transfer.
--- NOTE | 2019-08-13 19:15 | NUR ---
Note Pt arrived from ICU at 1845 via bed. Pt has O2 at 2L/nc and moreno catheter intact and draining. Pt had tele unit applied on admission to floor. Pt has SUZE PICC intact and patent infusing IVF's well. Dressing on BYRON and sacral area clean/dry intact at this time. Lower extremities elevated on pillows and oozing. Pt sleepy and calm at this time. No needs noted - pt has no SOB/resp distress or pain/discomfort or restlessness/agitation. Call light within reach.
--- NOTE | 2019-08-13 19:42 | NUR ---
Report Received report from day nurse, patient resting quietly at this time in bed, breathing is even and unlabored, on 2L NC, sinus rhythm in the heart monitor, fall and isolation precautions in place.
--- NOTE | 2019-08-13 21:20 | NUR ---
PAGED I PAGED DR. WHIPPLE I SPOKE WITH CASEY JIN
--- NOTE | 2019-08-13 21:30 | NUR ---
Call placed to Dr Kiser for two negative covid test: Talk to Dr. Frias and reported 2 negative result of covid test, Gave an order to discontinue Special droplet/contact isolation; primary RN made aware.
--- NOTE | 2019-08-13 21:44 | NUR ---
MED PASS Patient awake but drowsy, oral meds held, nitroglycerin medication administered to left hand, remains on 02 2l NC, 02 saturation over 95%. Patient repositioned for comfort, right upper arm picc line intact and patent, IVF of NS infusing at 50 ml/hr, patient has moreno catheter, secured and to gravity, draining yellow urine, fall and isolation precautions maintained.
--- NOTE | 2019-08-13 22:15 | NUR ---
[place] of care: Received report from HOLLY Álvarez. Patient is resting in bed. General red appearance noted, Dr. Frisa aware per report. No acute distress otherwise. Even and unlabored respirations on 2L O2 via nasal cannula. SUZE PICC line receiving IV fluids as ordered. Site is patent and benign. Mcfarland catheter draining yellow urine to gravity. Call light is with patient. Safety and fall precautions in place. Per report, COVID-19 isolation d/c'd following 2 negative results. Contact isolation in place for ESBL urine. Will continue with plan of care.
[2019-08-14 00:27] VITALS: BP_SYST 115
--- NOTE | 2019-08-14 00:51 | NUR ---
Moved to 100-A: Patient was moved at this time from room 120-B to room 100-A after COVID-19 isolation was d/c'd. Transfer uneventful. All belongings moved to patient's new room.
[2019-08-14] MEDS: NACL 0.9% 1,000 ML IV SCH (03:21)
[2019-08-14] MEDS: NITROGLYCERIN 1 INCH (GM) OINT. TP SCH ×3 (03:22→15:52)
--- NOTE | 2019-08-14 03:39 | NUR ---
PAGED I PAGED DR. WILSON I SPOKE WITH DINORA JIN
[2019-08-14] MEDS ORDERED: IPRATROPIUM/ALBUTEROL SULFATE 3 ML AMPUL.NEB (DUONEB) INH PRN (03:45)
--- NOTE | 2019-08-14 03:46 | NUR ---
Spoke with Dr. Shafer: Patient was noted to have labored breathing with inspiratory wheezing. SaO2 on 2L NC = 96%. Called and spoke with MD, updated her regarding patient's current status. Order received for Duoneb Q2H PRN for SOB/wheezing. Verified by read-back, RN to input. Will ask RT to administer 1 dose now.
[2019-08-14] MEDS ORDERED: IPRATROPIUM/ALBUTEROL SULFATE 3 ML AMPUL.NEB (DUONEB) ONE (04:05)
[2019-08-14] MEDS: BALSAM PERU/CASTOR OIL 60 GM OINT...G. TP SCH (05:45)
--- NOTE | 2019-08-14 05:45 | NUR ---
Wound care: Buttocks/sacral dressing change performed per MD orders and wound care nurse recommendations. Wound is 100% red, pink periwound. No drainage, odor, necrosis. Site cleansed with NS, patted dry with sterile gauze, z-guard to periwound, covered with foam dressing. Patient is turned Q2H, offloaded with pillow. Patient tolerated dressing change well.
--- NOTE | 2019-08-14 06:32 | NUR ---
Closing note: Patient is resting in bed. No acute distress on 2L NC. SUZE PICC line receiving IV fluids as ordered. Mcfarland catheter draining yellow urine to gravity, 550 ML emptied this AM. All needs met. Safety, fall precautions in place. Contact iso in place for ESBL urine. Will endorse care to dayshift RN.
[2019-08-14 07:47] LABS: BASOPHILS # (AUTO) 0.1 K/uL (0.0-0.2); BASOPHILS % (AUTO) 0.8 % (0.0-2.0); EOSINOPHILS # (AUTO) 0.8 K/uL (0.0-0.4); EOSINOPHILS % (AUTO) 5.7 % (0.0-4.0); HEMATOCRIT 35.6 % (36-48); HEMOGLOBIN 11.5 g/dL (12.0-16.0); LYMPHOCYTES % (AUTO) 13.8 % (20.5-51.5); MEAN CORPUSCULAR HEMOGLOBIN 33 pg (27-31); MEAN CORPUSCULAR HGB CONC 32 % (32-36); MEAN CORPUSCULAR VOLUME 102 fL (79.0-98.0); MONOCYTES # (AUTO) 0.5 K/uL (0.0-1.0); MONOCYTES % (AUTO) 3.6 % (1.7-9.3); NEUTROPHILS # (AUTO) 11.3 K/uL (1.8-7.7); PLATELET COUNT (AUTO) 267 K/uL (130-430); RED CELL DISTRIBUTION WIDTH 14.7 % (9.0-15.0); WHITE BLOOD COUNT (AUTO) 14.8 K/uL (4.8-10.8)
[2019-08-14 07:51] LABS: NEUTROPHILS % (AUTO) 76.1 % (40.0-70.0)
[2019-08-14] MEDS: ALBUTEROL SULFATE 0.083% 2.5 MG/3 ML VIAL.NEB INH SCH ×3 (07:59→15:32)
--- NOTE | 2019-08-14 08:00 | NUR ---
Initial notes: Patient is lethargic, using respiratory muscles and breathing is labored. Oxygenation is showing at 98%, repositioned patient and elevated HOB to help facilitate fluid collection. All her extremities are edematous and pitting. She has generalized redness on the entire body due to an allergic reaction to the antibiotics that were given at the ICU - were d/c and replaced with another AB. Patients blood pressure was stable this morning. came over to assess patient while in room. recommended potassium replacement. I will continue to monitor patient's progress. Bed is low, locked, 2 side rails up and call light is within reach. Dada BARRERA
[2019-08-14 08:11] LABS: ALANINE AMINOTRANSFERASE 19 U/L (12-78); ALBUMIN 1.7 g/dL (3.4-4.8); ANION GAP 11 (5-15); ASPARTATE AMINOTRANSFERASE 14 U/L (10-37); CALCIUM 7.3 mg/dL (8.4-11.0); CHLORIDE 117 mmol/L (98-107); CREATININE 1.06 mg/dL (0.55-1.30); GLUCOSE 68 mg/dL (70-99); SODIUM SERUM 149 mmol/L (136-145); TOTAL BILIRUBIN 0.3 mg/dL (0.0-1.0); UREA NITROGEN, BLOOD 31 mg/dL (8-21)
[2019-08-14] MEDS ORDERED: KCL 20 mEq in D5NS 1000 mL 1,000 ML IV SCH (08:25)
[2019-08-14] MEDS: FAMOTIDINE 20 MG TABLET PO SCH (08:27)
[2019-08-14] MEDS: GABAPENTIN 100 MG CAPSULE PO SCH (08:28)
[2019-08-14] MEDS ORDERED: KCL 20 mEq in D5/0.45NS 1000mL 1,000 ML IV SCH (08:29)
[2019-08-14] MEDS: DOCUSATE SODIUM 250 MG CAPSULE PO SCH (08:29)
[2019-08-14] MEDS: HYDROcodone/ACETAMIN 5-325 MG TAB (NORCO/ VICODIN) PO SCH (08:30)
[2019-08-14] MEDS ORDERED: POTASSIUM CHLORIDE 40 MEQ, LIDOCAINE JECT 2% PF 100 MG 50 MG in NS 250 ML IV ONE (08:30)
[2019-08-14 08:42] VITALS: BP_SYST 152
--- NOTE | 2019-08-14 10:02 | NUR ---
Patient status remains the same. recommended solumedrol for the redness and lasix for her water retention. Bed is low, locked, 2 side rails up and call light is within reach. Dada BARRERA
--- NOTE | 2019-08-14 10:25 | NUR ---
SS NOTES/HOSPICE EVAL: BLANCHE received order for Hospice Eval to [facility], clinicals are being reviewed. Addendum: 08/14/19 at 1218 by Edmund MANCIA MOLDER SWEEP received a call back from Sylvain [facility] regarding the conversation he had with patient's sister. Per sister, she will contact [facility] (where patient resides) and ask about the hospice program that the facility has, and will compare with [facility]. When decision has been made, patient's sister will contact [facility]. Per Sylvain, patient qualifies for inpatient hospice and when agitation subsides, they will help place patient into a board and care. SS will remain available. Addendum: 08/14/19 at 1337 by Edmund MANCIA BLANCHE received a call from pt's sister Nicole (DPOA) who wishes to use [facility] (p: [phone], f: [phone]). Clinicals faxed to [facility] for review. Addendum: 08/14/19 at 1504 by Edmund MANCIA [facility] will arrange for transportation for patient. Awaiting on Dr. Shafer's discharge order. BLANCHE booth operator will call [facility] for parts picker time. Addendum: 08/14/19 at 1505 by Edmund MANCIA [facility] contact: Reyna @ [phone]
--- NOTE | 2019-08-14 11:02 | NUR ---
S/W Nicole, patients sister to give her an update.
--- NOTE | 2019-08-14 11:06 | NUR ---
Nutrition F/U Admitting Diagnosis: PNA, CHF, PUI for COVID-19 Medical History Comment: PMHx includes A-fib, HTN, CHF, COPD per physician notes. Pt was found with septic shock, aspiration PNA, complicated UTI, metabolic encephalopathy, protein malnutrition per physician notes. COVID-19 PCR 08/08 negative. Per MD note, pt is DNR status. 08/10 CXR: suggests marginal CHF. Subjective Information Pt remains on isolation for ESBL, combative and pulling out IV. Per EMR review, pt 's family only wants comfort care and Dr. Shafer reported that pt w/ severe malnutrition and asked for dietary eval. BM 08/13 x2, abd is soft and nondistended. Pt is a feeder and per Crate Maker note 08/08 +Stage II Pressure Ulcer to buttock. Per nursing staff, pt is too lethargic this morning, and did not have anything for breakfast. Pt w/ increased protein-energy needs for wound healing and may benefit from ONS and Adam. Current Diet Order/Nutrition Support: 2gm Na x 6 days Pertinent Labs: 08/13 WBC 14.8H, Na 149WNL, K 3L, BG 68L, BUN 31H, CRE 1.06WNL COVID-19 PCR Negative 08/07, Negative 08/09 Skin Integrity Comment: Devendra Score: 17. Crate Maker note 08/08 Stage II pressure ulcer to buttock. +2 pitting edema to BLE, non-pitting edema to BUE per RN notes. Current % PO Poor (0-50%) NEW Estimated Energy Expenditure (kcals/day) 4234-9454 kcal/day (30-35 kcal/kg based on AdjBW for obesity, sepsis) Estimated Protein Required (g/day) 96-128g/day (1.5-2g/kg based on AdjBW for obesity, sepsis) Estimated Fluid Required (l/day) Fluid needs deferred to MD d/t hx of CHF Problem/Etiology/Signs/Symptoms Increased nutrient needs related to increased metabolic demands as evidenced by critical illness, sepsis. (*ongoing) Expected Outcomes/Goals Monitor appetite and PO intakes w/ goal of pt meeting at least 50% of estimated nutritional needs, labs trending WNL, normal GI function, and skin integrity/wt maintenance Dietitian Recommendations *Continue 2gm Na diet as tolerated *Recommend: add Ensure Enlive TID. ONS provides 1050 kcal,,60gm protein daily. *Encourage PO intake *Consider appetite stimulant. Follow Up High Risk: F/U in 2-3days
[2019-08-14] MEDS ORDERED: FUROSEMIDE 20 MG/2 ML VIAL IVP ONE (11:15)
--- NOTE | 2019-08-14 11:22 | NUR ---
Dietitian Recommendations *Continue 2gm Na diet as tolerated *Recommend: add Ensure Enlive TID. ONS provides 1050 kcal,,60gm protein daily. *Encourage PO intake *Consider appetite stimulant. Please see Nutrition F/U note for details. BRENTON NASH Addendum: 08/14/19 at 1502 by Ana María Chisholm RD BRENTON s/w Dr. Shafer about BR[facility] rec and stated that pt is for hospice care.
--- NOTE | 2019-08-14 11:27 | NUR ---
Received call from hospice, gave report to nurse in regards to patient status. He will call family members first before he comes in to assess patient. Dada BARRERA
[2019-08-14 11:50] VITALS: BP_SYST 152
[2019-08-14] MEDS: ERTAPENEM SODIUM 1 GM in NS 50 ML IV SCH (12:29)
[2019-08-14 12:34] VITALS: BP_SYST 120
--- NOTE | 2019-08-14 12:40 | NUR ---
Sugar level was low (62), patient was given dextrose 50% IV Push, after the second sugar check her sugar was 145. Dada BARRERA
[2019-08-14] MEDS ORDERED: INSULIN LISPRO SLIDING SCALE 100 UNITS/ML VIAL (humaLOG) SUBCUT PRN (13:15)
[2019-08-14] MEDS ORDERED: DEXTROSE 50% JECT 50 ML DISP.SYRIN ONE (13:21)
--- NOTE | 2019-08-14 13:38 | NUR ---
DC Planning: Per MS EdmundW : pt and family does not want [facility], they preferred [facility]. Dr. Shafer made aware and new revised order received and carried out.
[2019-08-14] MEDS ORDERED: methylPREDNISolone SOD SUCC/PF 62.5 MG/ML VIAL IVP SCH (14:00)
--- NOTE | 2019-08-14 14:03 | NUR ---
Patient remains the same, lethargic but responding to deep stimuli. Vitals are stable and will continue to monitor. Bed is low, locked, 2 side rails up and call light is within reach. Dada BARRERA
--- NOTE | 2019-08-14 16:00 | NUR ---
approved for patient to go to hospice, DC order has been placed and we will begin process. Patient will be picked up at 4:30pm. Lynnette BARRERA
[2019-08-14 16:19] VITALS: BP_SYST 116
[2019-08-14 16:31] VITALS: BP_SYST 124
--- NOTE | 2019-08-14 17:08 | NUR ---
Patient was picked and report was given to paramedics. Dada BARRERA
== END 2019-08-14 17:08 | disposition hospice, home (50) | DRG 871 ==
LOC: SED 03:23 → EEVIPCON 06:27 → STU 06:27 → SIC 10:51 → STU 08-13 18:45
PROVIDERS: ADMIT Internal Medicine; ATTEND Internal Medicine
PROC: 02HV33Z Insertion of Infusion Device into Superior Vena Cava, Percutaneous Approach (ICD-10-PCS; principal; 2019-08-11)
PROC: B548ZZA Ultrasonography of Superior Vena Cava, Guidance (ICD-10-PCS; 2019-08-11)
DX: A41.9 Sepsis, unspecified organism (principal); R65.21 Severe sepsis with septic shock; N17.0 Acute kidney failure with tubular necrosis; J69.0 Pneumonitis due to inhalation of food and vomit; G93.41 Metabolic encephalopathy; J96.01 Acute respiratory failure with hypoxia; N39.0 Urinary tract infection, site not specified; Z68.41 Body mass index [BMI] 40.0-44.9, adult; L03.115 Cellulitis of right lower limb; L03.116 Cellulitis of left lower limb; Z16.12 Extended spectrum beta lactamase (ESBL) resistance; E46 Unspecified protein-calorie malnutrition; I48.91 Unspecified atrial fibrillation; J44.9 Chronic obstructive pulmonary disease, unspecified; I50.9 Heart failure, unspecified; E78.5 Hyperlipidemia, unspecified; I11.0 Hypertensive heart disease with heart failure; I87.8 Other specified disorders of veins; Z20.828 Contact with and (suspected) exposure to other viral communicable diseases; M19.90 Unspecified osteoarthritis, unspecified site; Z66 Do not resuscitate; B96.20 Unspecified Escherichia coli [E. coli] as the cause of diseases classified elsewhere; T78.49XA Other allergy, initial encounter; X58.XXXA Exposure to other specified factors, initial encounter; Z87.891 Personal history of nicotine dependence; Z79.01 Long term (current) use of anticoagulants; Z90.722 Acquired absence of ovaries, bilateral; Z90.710 Acquired absence of both cervix and uterus; Z88.1 Allergy status to other antibiotic agents; Z88.8 Allergy status to other drugs, medicaments and biological substances; Z79.899 Other long term (current) drug therapy; Z82.5 Family history of asthma and other chronic lower respiratory diseases; Z82.49 Family history of ischemic heart disease and other diseases of the circulatory system
CPT/HCPCS: 36415; 36600; 71045; 73552; 76770; 80053; 81000-TC; 82150-TC; 82550-TC; 82803-TC; 82962; 83605; 83690-TC; 83735-TC; 83880; 84100-TC; 84443-TC; 84484; 85007; 85025; 85027; 85379; 85610-TC; 85730-TC; 86140; 86710; 87040-TC; 87081; 87086; 87186-TC; 93005; 93306; 94640; 94760; 96361; 96365; 96375; 99285; C1751; G0378; J0456; J0610; J0696; J1335; J1885; J1940; J2060; J2543; J2930; J3480; J7030; J7050; J7060; J7613; P9046; U0003-CS